=== PATIENT | female | born 1965 | race Caucasian/White ===

== ENCOUNTER 2018-10-01 07:30 | Day surgery (SDC) | payer BC ==
[2018-10-01] MEDS: Sodium Chloride 0.9% 1,000 ML IV SCH (09:03)
[2018-10-01] MEDS ORDERED: Propofol 200 MG/20 ML SDV ONE (09:08)
[2018-10-01] MEDS ORDERED: Midazolam 1 MG/ML 2 ML SDV ONE (09:08)
[2018-10-01] MEDS ORDERED: fentaNYL 100 MCG/2 ML SDV ONE (09:08)
[2018-10-01] MEDS ORDERED: Sodium Chloride 0.9% 1,000 ML IV SCH (10:15)
--- NOTE | 2018-10-02 07:50 | OR ---
DATE OF PROCEDURE: 10/01/2018 SURGEON: Ronald Garcia MD PROCEDURES: 1. EGD. 2. Colonoscopy. FINDINGS: 1. Mild inflammation in the distal gastric antrum (biopsied using cold biopsy forceps). 2. Hiatal hernia, approximately 3 cm in size. 3. Inflammation at the GE junction with a history of Sousa's esophagus (biopsied x8). 4. Colonoscopy showed mild diverticulosis. No other gross abnormalities. PREOPERATIVE DIAGNOSIS: History of Sousa's esophagus, screening colonoscopy. POSTOPERATIVE DIAGNOSIS: History of Sousa's esophagus, screening colonoscopy. RISKS: Risks, benefits, alternatives, and limitations including, but not limited to infection, bleeding, and perforation were explained to the patient, who wished to proceed. PROCEDURE IN DETAIL: The patient was placed in the left lateral decubitus position. The EGD scope was introduced and advanced atraumatically into the second part of the duodenum. At the sphincter of Oddi, the patient had a prominent sphincter of Oddi. Multiple images were taken. No abnormality with respect to inflammation or other abnormalities were noted. Bringing the scope back into the stomach and the distal gastric antrum, at the junction of the duodenum, there was mild inflammation and 2 polypoid-type lesions. These were biopsied each using cold biopsy forceps. On retroflexion, the patient had a small hiatal hernia. No other abnormalities noted in the stomach. The GE junction showed inflammation consistent with previous reflux disease. This was biopsied multiple times using cold biopsy forceps. The remainder of the esophagus was inspected and was without abnormality. Digital rectal exam was performed and that showed probable external hemorrhoids. The scope was introduced and advanced atraumatically to the ileocecal valve. The scope was brought back through the ascending, transverse, descending colon, and retroflexed. No masses. No polyps. Diverticulosis, again, was described without any evidence of bleeding, diverticulitis, and would be mild in nature. On retroflexion, no abnormalities. The patient tolerated the procedure well. Ronald Garcia MD /[id number]
== END 2018-10-01 10:54 | disposition home or self-care (01) ==
LOC: JP.SDS 07:30
PROVIDERS: ATTEND Surgery
DX: Z12.11 Encounter for screening for malignant neoplasm of colon (principal); K57.30 Diverticulosis of large intestine without perforation or abscess without bleeding; K22.70 Barrett's esophagus without dysplasia; K31.89 Other diseases of stomach and duodenum; K44.9 Diaphragmatic hernia without obstruction or gangrene; K21.9 Gastro-esophageal reflux disease without esophagitis; R73.03 Prediabetes; E66.9 Obesity, unspecified; Z68.34 Body mass index [BMI] 34.0-34.9, adult; Z88.2 Allergy status to sulfonamides; Z88.1 Allergy status to other antibiotic agents
CPT/HCPCS: 43239; 45378; 88305; J2250; J2704; J3010; J7030

== ENCOUNTER 2021-05-11 06:25 | Day surgery (SDC) | payer BC ==
[2021-05-11] MEDS ORDERED: Sodium Chloride 0.9% 1,000 ML IV SCH (07:00)
[2021-05-11 07:14] LABS: CORONAVIRUS COVID-19 NAA NEGATIVE (NEGATIVE)
[2021-05-11] MEDS ORDERED: fentaNYL 100 MCG/2 ML SDV ONE (07:22)
[2021-05-11] MEDS ORDERED: Midazolam 1 MG/ML 2 ML SDV ONE (07:22)
[2021-05-11] MEDS ORDERED: Propofol 200 MG/20 ML SDV ONE (07:23)
--- NOTE | 2021-05-11 09:10 | OR ---
DATE OF PROCEDURE: 05/11/2021 SURGEON: Ronald Garcia MD PROCEDURE: Esophagogastroduodenoscopy. FINDINGS: 1. Gastric polyp, approximately 8 mm, completely removed using cold biopsy forceps. 2. Inflammation of the GE junction with history of Sousa's esophagus. PREOPERATIVE DIAGNOSIS: History of Sousa's esophagus. POSTOPERATIVE DIAGNOSIS: History of Sousa's esophagus. RISKS: Risks, benefits, alternatives, and limitations including, but not limited to infection, bleeding, perforation, false positives, false negatives were explained to the patient who wished to proceed. PROCEDURE IN DETAIL: The patient was placed in left lateral decubitus position. The EGD scope was introduced and advanced atraumatically to the second part of the duodenum. No evidence of duodenitis or ulceration was noted. Within the stomach itself, there was no gastritis. It appeared the patient had prominent erythematous-looking gastric polyp. This was biopsied/completely removed using cold biopsy forceps. No abnormalities on retroflexion. The GE junction was biopsied x8 using cold biopsy forceps. There was no significant erythematous or salmon-colored tongue protrusions of tissue. This looked a fairly normal GE junction. The air was removed from the stomach. The esophagus was inspected without abnormality. The patient tolerated the procedure well. Ronald Garcia MD /[id number]
== END 2021-05-11 09:00 | disposition home or self-care (01) ==
LOC: JP.SDS 06:25
PROVIDERS: ATTEND Surgery
DX: K31.7 Polyp of stomach and duodenum (principal); K22.70 Barrett's esophagus without dysplasia; K21.9 Gastro-esophageal reflux disease without esophagitis; E66.9 Obesity, unspecified; F32.A Depression, unspecified; Z01.812 Encounter for preprocedural laboratory examination; Z20.822 Contact with and (suspected) exposure to COVID-19
CPT/HCPCS: 0241U; 43239; J2250; J2704; J3010; J7030